=== PATIENT | male | born 1995 | race Caucasian/White ===

== ENCOUNTER 2016-07-18 11:19 | Emergency (ER) | payer OTHER ==
[~2016-07-18] VITALS: Ht 167.6 cm; Wt 75.0 kg
[2016-07-18 11:21] VITALS: Ht 167.6 cm; Wt 75.0 kg
--- NOTE | 2016-07-18 11:42 | ERD ---
ER Documentation Chief Complaint Date/Time DATE: 07/18/16 TIME: 11:37 Chief Complaint 8 throat pain/swelling x yesterday HPI This is a 20-year-old male that presents to the ER with sore throat, fever, fatigue since Tuesday. Patient noticed that he has some swelling to his throat throughout the week however yesterday swelling became more severe. Patient has been taking Tylenol for his fever which has helped. He is able to swallow however does hurt when he swallows. He denies any difficulty in breathing. He denies any chest pain or shortness of breath. ROS 12 point review of systems was done, all negative except per HPI. Medications Home Meds Active Scripts Clindamycin Hcl* (Clindamycin Hcl*) 300 Mg Capsule, 300 MG PO TID for 10 Days, CAP Prov:SYMONE KOROMA 07/18/16 Allergies Allergies: Coded Allergies: No Known Allergy (Unverified , 07/18/16) Physical Exam Vitals Vital Signs Date Time Temp Pulse Resp B/P Pulse Ox O2 Delivery O2 Flow Rate FiO2 07/18/16 11:21 99.4 84 18 136/66 98 Physical Exam GENERAL: The patient is well developed and appropriate for usual state of health , in no apparent distress. HEENT: Atraumatic. Conjunctivae are pink. Pupils equal, round, and reactive to light. Extraocular muscles are grossly intact. Bilateral tympanic membranes are clear with no evidence of erythema, effusion or dulling of the light reflex. Erythematous tonsils bilaterally. There is a 1 cm x 2 cm mass to the anterior neck. CHEST: Clear to auscultation bilaterally. There are no rales, wheezes or rhonchi. HEART: Regular rate and rhythm. No murmurs, clicks, rubs or gallops. NEURO: Alert and oriented. SKIN: There is no apparent rash or petechia. The skin is warm and dry. Result Diagram: 07/18/16 1151 07/18/16 1151 Results 24 hrs Laboratory Tests Test 07/18/16 11:51 White Blood Count 8.010^3/ul Red Blood Count 5.6210^6/ul Hemoglobin 16.3g/dl Hematocrit 52.0% Mean Corpuscular Volume 92.5fl Mean Corpuscular Hemoglobin 29.0pg Mean Corpuscular Hemoglobin Concent 31.3g/dl Red Cell Distribution Width 12.8% Platelet Count 41821^3/UL Mean Platelet Volume 10.1fl Neutrophils % 72.4% Lymphocytes % 16.4% Monocytes % 8.2% Eosinophils % 2.4% Basophils % 0.4% Nucleated Red Blood Cells % 0.0/100WBC Neutrophils # 5.810^3/ul Lymphocytes # 1.310^3/ul Monocytes # 0.710^3/ul Eosinophils # 0.210^3/ul Basophils # 0.010^3/ul Nucleated Red Blood Cells # 0.010^3/ul Sodium Level 144mmol/L Potassium Level 3.8mmol/L Chloride Level 101mmol/L Carbon Dioxide Level 28mmol/L Anion Gap 19 Blood Urea Nitrogen 13mg/dl Creatinine 1.02mg/dl Glucose Level 94mg/dl Calcium Level 9.5mg/dl Total Bilirubin 1.5mg/dl Direct Bilirubin 0.00mg/dl Indirect Bilirubin 1.5mg/dl Aspartate Amino Transf (AST/SGOT) 29IU/L Alanine Aminotransferase (ALT/SGPT) 55IU/L Alkaline Phosphatase 95IU/L Total Protein 8.2g/dl Albumin 4.8g/dl Globulin 3.40g/dl Albumin/Globulin Ratio 1.41 Current Medications Medications (Trade) Dose Ordered Sig/Cari Route PRN Reason Start Time Stop Time Status Last Admin Dose Admin IV Flush 10 ml 10 ml STK-MED ONCE .ROUTE 07/18/16 12:39 07/18/16 12:40 DC 07/18/16 12:53 Sodium Chloride (NS) 100 ml @ ud STK-MED ONCE .ROUTE 07/18/16 12:39 07/18/16 12:40 DC 07/18/16 12:54 Iohexol (Omnipaque 300mg/ ml) 150 ml STK-MED ONCE .ROUTE 07/18/16 12:39 07/18/16 12:40 DC 07/18/16 12:55 Clindamycin Phosphate (Cleocin) 300 mg ONCE ONCE IM 07/18/16 14:00 07/18/16 14:02 DC Clindamycin Phosphate (Cleocin) 300 mg ONCE ONCE IV 07/18/16 14:30 07/18/16 14:31 DC 07/18/16 14:19 Procedures/MDM This is a 20-year-old male presents to the ER with a sore throat and swelling to his anterior neck. Patient does have a small abscess. I consulted this case with Dr. George. Patient is afebrile and well-appearing he does not have any difficulty with breathing. Per his recommendation, patient will be given a trial of clindamycin to try at home. Patient does not see any improvement within 24-48 hours he is to return to ER immediately for abscess drainage. I shared my medical decision making with the patient he understands and agrees with plan. Departure Diagnosis: Primary Impression: Abscess Condition: Stable SYMONE KOROMA Jul 18, 2016 11:41
[2016-07-18 11:52] LABS: ADD SCAN DIFF NO
[2016-07-18 12:00] LABS: BASOPHILS % 0.4 % (0.0-2.0); EOSINOPHILS # 0.2 10^3/ul (0.0-0.5); EOSINOPHILS % 2.4 % (0.0-7.0); HEMOGLOBIN 16.3 g/dl (14.0-18.0); LYMPHOCYTES # 1.3 10^3/ul (0.8-2.9); LYMPHOCYTES % 16.4 % (15.0-51.0); MEAN CORPUSCULAR HGB CONC 31.3 g/dl (32.0-37.0); MEAN CORPUSCULAR VOLUME 92.5 fl (82.0-101.0); MEAN PLATELET VOLUME 10.1 fl (7.4-10.4); MONOCYTE # 0.7 10^3/ul (0.3-0.9); MONOCYTES % 8.2 % (0.0-11.0); NEUTROPHIL # 5.8 10^3/ul (1.6-7.5); NEUTROPHILS % 72.4 % (39.0-77.0); PLATELET COUNT 211 10^3/UL (140-415); RED BLOOD COUNT 5.62 10^6/ul (4.70-6.10); RED CELL DISTRIBUTION WIDTH 12.8 % (11.5-14.5)
[2016-07-18 12:11] LABS: ALBUMIN 4.8 g/dl (3.3-4.9); POTASSIUM 3.8 mmol/L (3.5-5.1)
[2016-07-18 12:13] LABS: BILIRUBIN,INDIRECT 1.5 mg/dl (0-1.1); BILIRUBIN,TOTAL 1.5 mg/dl (0.2-1.3); CREATININE 1.02 mg/dl (0.61-1.24)
[2016-07-18 12:14] LABS: ALBUMIN/GLOBULIN RATIO 1.41; TOTAL PROTEIN 8.2 g/dl (6.1-8.1)
[2016-07-18 12:15] LABS: CALCIUM 9.5 mg/dl (8.4-10.2)
[2016-07-18] MEDS ORDERED: SOD CHLORIDE 0.9% 100 ML ONE (12:39)
[2016-07-18] MEDS ORDERED: IOHEXOL 300MG/ML 150 ML BTL ONE (12:39)
--- NOTE | 2016-07-18 13:32 | RADRPT ---
PROCEDURE: CT scan of the soft tissues of the neck with contrast. CLINICAL INDICATION: Painful palpable lesion in the neck. TECHNIQUE: Helical axial sections were obtained through the soft tissues of the neck during intrav enous injection of 80 cc of Omnipaque-300. Sagittal and coronal formatted images were accomplished using the data from the axial images. Total exam DLP is 198.90 mGy-cm. CTDIvol is 7.74 mGy. One or more of the following dose reduction techniques were used: Automated exposure control, adjustment o f the mA and/or kV according to patient size, use of iterative reconstruction technique. COMPARISON: No prior studies available for comparison. FINDINGS: Anterior slightly to the left of midline, there is a peripherally enhancing low attenuation mass tobin suring 1.7 x 2.4 x 1.7 cm in AP, transverse, and cranial caudal dimensions. There is no other neck mass or lymphadenopathy. The vascular structures are normal. The thyroid is normal. The airway is intact. The epiglottis is normal. The bones are grossly normal. There is a 2.5 cm cyst or polyp in the right maxillary sinus and a 1. 2 cm cyst or polyp in the left maxillary sinus. The visualized portions of the paranasal sinuses ar e otherwise normal. The lung apices are normal. IMPRESSION: 1. Mass with peripheral enhancement in the anterior left side of neck measuring 1.7 x 2.4 x 1.7 cm consistent with a small abscess. 2. Polyps or cysts in the maxillary sinuses. 3. Otherwise unremarkable CT scan of the soft tissues of the neck. RPTAT: QQ .Moisés Ludwig MD, MD Date Time Electronically viewed and signed by .Moisés Ludwig MD, MD on 07/18/2016 13:32 .R/
[2016-07-18] MEDS ORDERED: CLINDAMYCIN 300 MG INJ IM ONE (14:00)
[2016-07-18] MEDS ORDERED: CLINDAMYCIN 300 MG INJ IV ONE (14:30)
[2016-07-18] MEDS ORDERED: CLIN-73 PO (14:34)
[2016-07-18 15:19] VITALS: TEMP 98.9
[2016-07-20] MEDS ORDERED: IBUP-1542 PO (04:43)
[2016-07-20] MEDS ORDERED: PRED20TA PO (04:43)
== END 2016-07-18 15:39 | disposition home or self-care (01) ==
LOC: FTE 11:19
DX: L02.11 Cutaneous abscess of neck (principal)
CPT/HCPCS: 70491; 80053; 85025; Q9967; Z7610; 96374